=== PATIENT | male | born 1965 | race Caucasian/White ===

== ENCOUNTER → 2019-05-23 10:29 | Outpatient (CLI) | payer OTHER, SELFPAY ==
[2019-05-23 11:37] LABS: Hemoglobin A1C% w Est Avg Glu 6.3 % (4.0-6.0)
[2019-05-23 11:40] LABS: Alanine Aminotransferase 10 IU/L (<50); Albumin 4.2 g/dL (3.5-5.0); Albumin Globulin Ratio 1.4 (1.0-2.8); Alkaline Phosphatase 105 U/L (38-126); Aspartate Aminotransferase 19 IU/L (17-59); BUN Creatinine Ratio 12.1 (6-22); Bilirubin Total 0.7 mg/dL (0.2-1.3); Blood Urea Nitrogen 17 mg/dL (9-20); Calcium 9.5 mg/dL (8.4-10.2); Carbon Dioxide 25 mmol/L (22-32); Chloride 101 mmol/L (98-107); Globulin 3.1 g/dL (1.7-4.1); Glucose 169 mg/dL (70-100); HEMOLYSIS < 15 (0-50); Potassium 4.3 mmol/L (3.4-5.1); Sodium 137 mmol/L (137-145); Total Protein 7.3 g/dL (6.3-8.2)
[2019-05-23 12:49] LABS: Thyroid Stimulating Hormone 3.71 uIU/mL (0.47-4.68)
[2019-05-23 15:41] LABS: Creatinine Urine Random 82.7 mg/dL
[2019-05-23 15:43] LABS: Microalbumi Creatinin Ratio Ur 38.6 ug/mg CR (<30); Microalbumin Urine Random 3.2 mg/dL (0-1.6)
[2019-05-26 20:50] LABS: Arsenic 2 mcg/L (< 23); Lead, Blood 9 mcg/dL (< 5)
[2019-05-30 10:39] LABS: Mercury, Blood < 2
== END ==
PROVIDERS: PCP Family Medicine; Visit Provider Family Medicine
DX: E11.9 Type 2 diabetes mellitus without complications (principal); N28.9 Disorder of kidney and ureter, unspecified
CPT/HCPCS: 36415; 80053; 82043; 82570; 83036; 83825; 84443